=== PATIENT | female | born 1960 | race Caucasian/White ===

== ENCOUNTER → 2020-10-27 | Outpatient (CLI) | payer MEDICARE, OTHER | LOC: MAMO 10-04 10:30 | DX: Z12.31 Encounter for screening mammogram for malignant neoplasm of breast (principal); Z53.8 Procedure and treatment not carried out for other reasons ==

== ENCOUNTER → 2021-05-11 | Outpatient (CLI) | payer MEDICARE | LOC: CT 08:15 | DX: R10.11 Right upper quadrant pain (principal); K57.90 Diverticulosis of intestine, part unspecified, without perforation or abscess without bleeding; K63.89 Other specified diseases of intestine | CPT/HCPCS: 36415; 82565; 84520; Q9967 ==

== ENCOUNTER → 2021-07-10 | Outpatient (CLI) | payer MEDICARE | LOC: EXRD 15:14 | DX: R10.2 Pelvic and perineal pain (principal); R93.89 Abnormal findings on diagnostic imaging of other specified body structures | CPT/HCPCS: 76856 ==

== ENCOUNTER → 2022-01-28 | Outpatient (CLI) | payer MEDICARE | LOC: MAMO 12-07 15:00 | DX: Z12.31 Encounter for screening mammogram for malignant neoplasm of breast (principal) | CPT/HCPCS: 77063; 77067 ==

== ENCOUNTER → 2022-04-15 | Outpatient (CLI) | payer MEDICARE | LOC: RAD 08:00 | DX: R13.19 Other dysphagia (principal); K21.9 Gastro-esophageal reflux disease without esophagitis; K44.9 Diaphragmatic hernia without obstruction or gangrene | CPT/HCPCS: 74221 ==